=== PATIENT | male | born 1985 | race Caucasian/White ===

== ENCOUNTER 2022-11-08 16:40 | Emergency (ER) | payer OTHER, SELFPAY ==
[2022-11-08] VITALS (13 sets, daily range): BP systolic 167–223; BP diastolic 92–130; PULSE 95–112; RESP 19–28; TEMP 37–37.6; O2SAT 90–95
--- NOTE | ~2022-11-08 | CT_ITS ---
EXAMINATION: CTA chest PE protocol DATE: 11/08/2022 18:39 CDT INDICATION: Shortness of breath. Elevated d-dimer. TECHNIQUE: Computed tomographic angiography (CTA) of the chest was performed with 100 mL Omnipaque-35 0 intravenous contrast. The dose-length product was 2078.04 mGy-cm. Maximum intensity projection 3D-r econstructions of the aorta and other arteries were constructed by the technologist on a separate wor kstation. COMPARISON: Chest dated 11/08/2022. FINDINGS: Study limited for evaluation of pulmonary embolism due to contrast bolus timing. There is m ediastinal and right hilar lymphadenopathy. Cardiomegaly. No significant pleural or pericardial effus ion. There are a few patchy groundglass opacities. There is interlobular septal thickening. Findings most likely represents a mild edema. Infection less favored. No endobronchial lesions. No pneumothora x. IMPRESSION: 1. Study nondiagnostic for evaluation of pulmonary embolism. 2: Patchy groundglass opacities with interlobular septal thickening bilaterally, most likely mild chadd ma. Pneumonia less favored. 3: Mediastinal and right hilar lymphadenopathy, nonspecific. Reviewed, dictated and finalized at location A. IMPRESSION: 1. Study nondiagnostic for evaluation of pulmonary embolism. 2: Patchy groundglass opacities with interlobular septal thickening bilaterally , most likely mild edema. Pneumonia less favored. 3: Mediastinal and right hilar lymphadenopathy, nonspecific.
--- NOTE | ~2022-11-08 | XR_ITS ---
XR chest 1V portable 11/08/2022 17:00 Indication: Shortness of breath. Cough. Procedure: AP portable chest Comparison: No prior studies for comparison. Findings: Cardiomegaly with interstitial edema. No pleural effusion or pneumothorax. No acute osseous abnormality. Impression: 1: Cardiomegaly with interstitial edema. Reviewed, dictated and finalized at location A. Impression: 1: Cardiomegaly with interstitial edema.
--- NOTE | 2022-11-08 16:48 | ED.SOB ---
HPI - SOB/Dyspnea General Chief Complaint: Shortness of Breath/Dyspnea Stated Complaint: Shortness of Breath Time Seen by Provider: 11/08/22 16:48 Source: patient and EMS Mode of arrival: ambulatory Limitations: no limitations History of Present Illness HPI Narrative: 37-year-old male with obesity, ZOE on CPAP, hypertension Ex-smoker, presents to the ER with a 2 day history of -- shortness of breath -- nonproductive cough -- patient has not been taking his blood pressure medicine for the past few years his aunt called EMS who noted his oxygen saturation to be in the 80s following which the placed him on oxygen. On arrival to the ER the patient has an oxygen saturation of 93-98% on room air. The patient denied any chest pain. He had a temperature of 99.7?. No chills or rigors. -- elevated blood pressure of 223/130 MD elicited complaint: shortness of breath and cough Onset (ago): day(s) ( 2 days) Exacerbating factors: exertion Associated symptoms: cough Treatment prior to arrival: none Related Data Allergies Allergy/AdvReac Type Severity Reaction Status Date / Time No Known Allergies Allergy Verified 11/08/22 16:57 Review of Systems Review of Systems: All systems reviewed & are unremarkable except as noted in HPI and below Constitutional: Constitutional: Reports as per HPI and Reports no additional constitutional complaints Eyes: Eyes: Reports as per HPI and Reports no additional eye complaints ENT: Reports system reviewed and no additional complaints, except as documented and Reports as per HPI Cardiovascular: Cardiovascular: Reports as per HPI and Reports no additional cardiovascular complaints Respiratory: Respiratory: Reports as per HPI, Reports no additional respiratory complaints, Reports cough and Reports dyspnea Gastrointestinal: Gastrointestinal: Reports as per HPI and Reports no additional gastrointestinal complaints Genitourinary: Genitourinary: Reports no additional male genitourinary complaints and Reports as per HPI Musculoskeletal: Musculoskeletal: Reports no additional musculoskeletal complaints and Reports as per HPI Integumentary/Breasts: Skin/Breast: Reports system reviewed and no additional complaints, except as docu and Reports as per HPI Neurologic: Reports system reviewed and no additional complaints, except as documented and Reports as per HPI Psychiatric: Psychiatric: Reports no additional psychiatric complaints and Reports as per HPI Endocrine: Endocrine: Reports no additional endocrine complaints and Reports as per HPI Hematologic/Lymphatic: Hematologic/Lymphatic: Reports no additional hematologic/lymphatic complaints and Reports as per HPI Allergic/Immunologic: Allergic/Immunologic: Reports no additional allergic/immunologic complaints and Reports as per HPI [facility] Past Medical History Medical History (Updated 11/08/22 @ 19:18 by Augusto Berry MD) Hypertension Hypertensive urgency Morbid obesity Obstructive sleep apnea Exam Narrative: blood pressure of 222/130 Const: General: no acute distress Nutritional Appearance: obese Orientation/consciousness: patient oriented x3 Limitations: no limitations HENMT: Head: normal to inspection Ears: external ears normal Face/Nose/Sinus: Normal external nose present Face and sinus: normal facial exam Mouth: Yes Normal oral and palatal mucosa present Throat: posterior oropharynx normal Eyes: Conjunctivae: conjunctivae normal Pupils: Equal, round and reactive pupils present EOM: EOMs intact bilaterally Direct Ophthalmoscopy: no photophobia Neck: Neck: normal visual inspection, no lymphadenopathy and no meningeal signs Chest: Chest palpation & inspection: normal inspection of the chest Resp: Effort & Inspection: normal respiratory effort Auscultation: clear to auscultation bilaterally Cardio: Rate: regular rate Rhythm: regular rhythm GI: GI Palp: Yes Soft to palpation Other: No tenderness/ rigidity / r
--- NOTE | 2022-11-08 16:49 | ECG_ITS ---
Measurements Intervals [place] Rate: 103 P: 48 SD: 153 QRS: 29 QRSD: 98 T: 25 QT: 341 QTc: 446 Interpretive Statements SINUS TACHYCARDIA VOLTAGE CRITERIA FOR LVH BORDERLINE R WAVE PROGRESSION, ANTERIOR LEADS MINIMAL Q WAVES- INFERIOR LEADS NONSPECIFIC T-WAVE ABNORMALITY- INFERIOR LEADS BASELINE ARTIFACT- II, III, AVR, AVL, AVF, V1 BORDERLINE ECG NO PREVIOUS ECG AVAILABLE FOR COMPARISON Electronically Signed On 11-09-2022 11:06:44 CDT by Dhaval Reina D.O.
[2022-11-08] MEDS: cloNIDine HCL 0.2 MG TABLET PO (17:09)
[2022-11-08 17:17] LABS: Base Excess ABG 0.7 mmol/L (0-2); Basophils Absolute Auto 0.06 K/mm3 (0.00-0.10); Basophils Percent Auto 0.5 % (0.0-1.0); Eosinophils Absolute Auto 0.12 K/mm3 (0.02-0.50); HCO3 ABG 24.3 mmol/L (23-29); Hematocrit 44.8 % (40.0-54.0); Hemoglobin 14.4 g/dL (14.0-18.0); Immature Granulocyte Absolute 0.07 K/mm3 (0.00-0.00); Immature Granulocyte Percent A 0.6 % (0.0-0.0); Lymphocytes Absolute Auto 1.87 K/mm3 (1.10-4.50); Lymphocytes Percent Auto 14.8 % (18.0-42.0); Mean Corpuscular HGB Conc 32.1 g/dL (32.0-36.0); Mean Corpuscular Hemoglobin 27.7 pg (27.0-31.0); Mean Corpuscular Volume 86.2 fL (78.0-102.0); Mean Platelet Volume 11.2 fl (8.7-11.0); Monocytes Absolute Auto 0.86 K/mm3 (0.10-0.90); Monocytes Percent Auto 6.8 % (2.0-11.0); Neutrophils Absolute Auto 9.6 K/mm3 (1.7-7.2); Neutrophils Percent Auto 76.3 % (50.0-70.0); Oxygen Content ABG 20.5 %vol (16.0-22.0); Oxygen Saturation ABG 96.3 % (95-97); Oxyhemoglobin 93.8 % (94-100); PCO2 ABG 35.8 mmHg (35-45); PO2 ABG 80.7 mmHg (80-90); Platelet Count Result 253 K/mm3 (150-420); Red Cell Distribution Width 13.3 % (11.6-14.4); Total Hemoglobin 15.5 g/dL (12.0-18.0); White Blood Count 12.6 K/mm3 (4.8-10.8); pH ABG 7.45 (7.35-7.45)
[2022-11-08 17:20] LABS: Device ROOM AIR; Modified Allen's Test Pass; Site Drawn RIGHT RADIAL
[2022-11-08 17:35] LABS: Lactic Acid Reflex 1.5 mmol/L (0.4-2.0)
[2022-11-08 17:38] LABS: Alanine Aminotransferase 33 U/L (16-63); Alkaline Phosphatase 94 U/L (46-116); Anion Gap 8 mmol/L (8-16); Aspartate Amino Transferase 14 U/L (15-37); Bilirubin,Total 0.3 mg/dL (0.00-1.00); Blood Urea Nitrogen 8 mg/dL (7-18); Calcium 8.7 mg/dL (8.5-10.1); Carbon Dioxide 27 mmol/L (21-32); Chloride 103 mmol/L (98-108); Estimated CRCL calculation 245 ml/min; Estimated Glomerular Filt Rate > 60; Glucose 233 mg/dL (70-99); NT Pro B Type Natriuretic Pept 403 pg/mL (0-125); Osmolality Calculated 291 mOsm/kg (285-295); Partial Thromboplastin Time 30.2 SEC (23.90-30.70); Prothrombin Time 10.5 Seconds (9.50-12.10); Sodium 138 mmol/L (136-145); Total Protein 7.1 g/dL (6.4-8.2)
[2022-11-08 17:39] LABS: D Dimer 1.14 mg/L (0.19-0.50)
[2022-11-08 17:40] LABS: Troponin I 43.8 ng/L (0.00-60.4)
[2022-11-08 17:58] LABS: Influenza A QL RT-PCR Negative (Negative); Influenza B QL RT-PCR Negative (Negative); SARS-CoV-2 RNA PCR Negative (Negative)
[2022-11-08 17:59] LABS: RSV RNA, RT-PCR Negative (Negative)
[2022-11-08 18:54] LABS: Add Urine Microscopic? NO; Appearance Urine Clear (Clear); Bilirubin Urine Negative (Negative); Blood Urine Negative (Negative); Color Urine Light Yellow (Yellow); Glucose Urine UA Negative (Negative); Ketones Urine Negative (Negative); Leukocyte Esterase Ur Negative (Negative); Nitrate Urine Negative (Negative); Protein Urine Negative (Negative); Specific Grav Ur 1.015 (1.010-1.020); Urobilinogen Urine 0.2 mg/dL (0.2-1.0)
--- NOTE | 2022-11-08 19:14 | PC.NURSE ---
report to sarah rn
== END 2022-11-08 19:24 | disposition home or self-care (01) ==
PROVIDERS: Emergency Provider Internal Medicine Critical Care Medicine
DX: I16.0 Hypertensive urgency (principal); R73.9 Hyperglycemia, unspecified; E66.01 Morbid (severe) obesity due to excess calories; I11.0 Hypertensive heart disease with heart failure; I50.21 Acute systolic (congestive) heart failure; Z68.45 Body mass index [BMI] 70 or greater, adult; Z20.822 Contact with and (suspected) exposure to COVID-19
CPT/HCPCS: 36415; 36600; 71045; 71275; 80053; 81003; 82805; 83605; 83880; 84484; 85025; 85380; 85610; 85730; 87637; 93005; 99284; A9270; Q9967

== ENCOUNTER 2023-01-01 18:49 | Outpatient (CLI) | payer OTHER, SELFPAY ==
--- NOTE | 2023-01-20 18:39 | WPDSLEEPSTUD ---
Sleep Study Date of Study: 01/01/23 Ordering Provider: Geovanny Fontenot DO Interpreting Physician: Elva Palmer DO Sleep Study Type: Split Polysomnogram Height: 1.7 m Weight: 205.931 kg Body Mass Index: 71.1 Neck Circumference (inches): 20.5 [place]: 3 Reason for Sleep Study Previously diagnosed ZOE. Current machine is malfunctioning. Needs to re-qualify for new machine. Sleep History The patient is a 37-year-old male with hypertension, congestive heart failure, diabetes, morbid obesity, history of tobacco use previously diagnosed sleep apnea that had a sleep study ordered by his primary care to re-qualify for a new machine. The patient denies awakening from sleep short of breath. He denies awakening at night with heartburn, belching or cough. He constantly snores but it is never loud enough others complain. He occasionally has trouble sleeping when he has a cold. He denies waking up gasping for air throughout the night. He occasionally has breathing problems at night observed by himself or others. He occasionally sweats excessively at night. He occasionally has heart palpitations or irregular heartbeats during the night. He occasionally falls asleep during the day but never while driving. He denies cataplexy. He denies having trouble at school or work due to sleepiness. He occasionally feels unable to move when waking up or falling asleep. He occasionally experiences vivid dreamlike scenes upon awakening or falling asleep. He denies feeling afraid of going to sleep. He rarely has nightmares and occasionally remembers his dreams. He occasionally has thoughts racing through his mind. He occasionally feels sad, depressed and anxious. He occasionally has muscular tension. He frequently notices parts of his body jerk. He rarely kicks during the night. He occasionally has crawling and aching feelings in his legs and occasionally has leg pain during the night. He rarely grinds his teeth during sleep but occasionally awakens with morning jaw pain. He is occasionally bothered by pain during the day but rarely awakened by pain during the night. He rarely wakes up feeling stiff in the morning. He rarely wakes up with sore or achy muscles. He rarely wakes up with pain in the neck, spine or other joints. He goes to bed at 12:30 a.m. on both weekdays and weekends. He is able to fall asleep within a few minutes. He wakes up 2-3 times for unknown reasons but is able to fall back asleep within a few minutes. He wakes up at 8:30 a.m. on both weekdays and weekends. He typically gets 7 hours of sleep per night. He does not stay in bed after waking up in the morning. He currently lives alone. He denies consuming any caffeinated beverages within 2 hours of bedtime. He denies engaging in physical exercise before bedtime. He denies reading and watching television before falling asleep. He will take naps in the afternoon or the evening and they are refreshing. He does consume caffeinated beverages throughout the day. He is a former smoker. He denies alcohol and recreational drug use. [facility] Past Medical History Medical History Hypertension Morbid obesity Obstructive sleep apnea Family History Family History Father Diabetes mellitus Hypertension Acute myocardial infarction Cerebrovascular accident Sibling Hypertension Social History Social History Smoking status: Former smoker Tobacco type: cigarettes Alcohol intake: former Lack of Transportation: No Lack of Food: Never True Current Housing: I Have Housing Concerned About Future Housing: No Difficulty Paying Gas/Electric Bills: No Difficulty Paying for Meds: No Currently Unemployed: No Education: High School Diploma/GED Difficulty w/ Childcare or Family Care: No Living a
[2023-01-20 18:53] VITALS: BMI 71.1
== END 2023-01-02 06:46 | disposition home or self-care (01) ==
PROVIDERS: PCP Family Medicine; Visit Provider Family Medicine
DX: G47.33 Obstructive sleep apnea (adult) (pediatric) (principal); R40.0 Somnolence
CPT/HCPCS: 95811